=== PATIENT | female | born 1995 | race Caucasian/White ===

== ENCOUNTER → 2020-06-27 | Day surgery (SDC) | payer OTHER ==
[~2020-06-27] MED LIST: Bupivacaine 0.5%/EPINEPHrine 1:200,000 50 ML MDV ONE; Dexamethasone 4 MG/ML 5 ML MDV ONE; HYDROmorphone 0.5 MG/0.5 ML Syringe IVPUSH PRN; Ketorolac 15 MG/ML SDV ONE; Lidocaine 1% 4 ML ONE; Midazolam 1 MG/ML 2 ML SDV ONE; Ondansetron 4 MG/2 ML SDV IVPUSH PRN; Ondansetron 4 MG/2 ML SDV ONE; Propofol 200 MG/20 ML SDV ONE; Rocuronium 50 MG/5 ML Vial ONE; cefOXitin 2 GM in Premix Bag 1 BAG IV ONE; fentaNYL 100 MCG/2 ML SDV IVPUSH PRN; fentaNYL 250 MCG/5 ML SDV ONE; oxyCODONE 5 MG Tab PO PRN
--- NOTE | 2020-06-27 17:30 | PCM.HP.2 ---
H&P History of Present Illness - General Date of Service: 06/27/20 Source of Information: Patient History Limitations: Reports: No Limitations - History of Present Illness Initial Comments - Free Text/Narative: Patient started having RLQ abd pain yesterday. Pain progressed through the day and was severe at night. Associated with anorexia, nausea and vomiting. Vomited twice last night. This AM the pain was better but anorexia persisted. SHe presented to the walk-in clinic where labs were normal but CT revealed 14mm appendix with micaela-inflammatory fluid consistent with acute appendicitis. I was asked to see the patient and asked the patient to meet me in the ED. Onset of Symptoms: Reports: Gradual Duration of Symptoms: Reports: Day(s): (2) Location: Reports: Abdomen Quality: Reports: Ache, Sharp Severity: Moderate Improves with: Reports: Immobilization Worsens with: Reports: Movement Associated Symptoms: Reports: Loss of Appetite, Nausea/Vomiting Abdominal Pain Score (Numeric/FACES): 7 - Related Data Allergies/Adverse Reactions: Allergies Allergy/AdvReac Type Severity Reaction Status Date / Time No Known Allergies Allergy Verified 06/27/20 16:49 Home Medications: Home Meds . [No Known Home Meds] 06/27/20 [History] Past Medical History - Past Health History Medical/Surgical History: Denies Medical/Surgical History Social & Family History - Tobacco Use Smoking Status *Q: Never Smoker - Recreational Drug Use Recreational Drug Use: No H&P Review of Systems - Review of Systems: Review Of Systems: See Below General: Reports: No Symptoms HEENT: Reports: No Symptoms Pulmonary: Reports: No Symptoms Cardiovascular: Reports: No Symptoms Gastrointestinal: Reports: No Symptoms Genitourinary: Reports: No Symptoms Musculoskeletal: Reports: No Symptoms Skin: Reports: No Symptoms Psychiatric: Reports: No Symptoms Neurological: Reports: No Symptoms Hematologic/Lymphatic: Reports: No Symptoms Exam - Exam Exam: See Below - Vital Signs Vital Signs: Last Vital Signs Temp 97.6 F 06/27/20 16:47 Pulse 80 06/27/20 16:47 Resp 19 06/27/20 16:47 BP 135/70 06/27/20 16:47 Pulse Ox 98 06/27/20 16:47 Weight: 89.811 kg - Exam General: Alert, Oriented, Cooperative Lungs: Clear to Auscultation, Normal Respiratory Effort Cardiovascular: Regular Rate, Regular Rhythm, Normal S1, Normal S2 GI/Abdominal Exam: Soft, No Organomegaly, No Distention, No Abnormal Bruit, No Mass, Tender (RLQ and suprapubic) Sepsis Event Note - Evaluation Sepsis Screening Result: No Definite Risk - Focused Exam Vital Signs: Vital Signs Temp Pulse Resp BP Pulse Ox 06/27/20 16:47 97.6 F 80 19 135/70 98 Problem List Initiated/Reviewed/Updated: No Orders Last 24hrs: Active Orders 24 hr Category Date Time Status CORONAVIRUS COVID-19 MARINA [MOLEC] Stat Lab 06/27/20 16:50 Received Assessment/Plan Comment:: Patient has acute appendicitis. I discussed the options for her including antibiotics and surgery including risks and benefits for each. I recommended surgery due to the large appendix. I discussed risks, benefits and alternatives for surgery, risks discussed include but not limited to infection, injury to adjacent structures, bleeding. Patient agreed to proceed with the procedure. Informed consent was obtained. - Mortality Measure Prognosis:: Good
--- NOTE | 2020-06-27 19:03 | PCM.PREANE ---
Preanesthetic Assessment - Procedure Proposed Procedure: Laparoscopic Appendectomy - Anesthesia/Transfusion/Family Hx Anesthesia History: No Prior Anesthesia Family History of Anesthesia Reaction: No - Review of Systems General: Appetite Pulmonary: No Symptoms Cardiovascular: No Symptoms Gastrointestinal: Abdominal Pain Neurological: No Symptoms Other: Reports: None - Physical Assessment NPO Status Date: 06/26/20 NPO Status Time: 20:00 Vital Signs: Last Vital Signs Temp 36.4 C 06/27/20 16:47 Pulse 80 06/27/20 16:47 Resp 19 06/27/20 16:47 BP 135/70 06/27/20 16:47 Pulse Ox 98 06/27/20 16:47 Height: 1.75 m Weight: 89.811 kg ASA Class: 1E Mental Status: Alert & Oriented x3 Airway Class: Mallampati = 1 Dentition: Reports: Normal Dentition (Wear to lower incisors) Thyro-Mental Finger Breadths: 3 Mouth Opening Finger Breadths: 3 ROM/Head Extension: Full Lungs: Clear to Auscultation, Normal Respiratory Effort Cardiovascular: Regular Rate, Regular Rhythm - Lab Values: Laboratory Last Values SARS Virus RNA (PCR) Negative (NEGATIVE) 06/27/20 16:50 Reviewed from [facility]. Within Normal Limits. HCG Negative. - Allergies Allergies/Adverse Reactions: Allergies Allergy/AdvReac Type Severity Reaction Status Date / Time No Known Allergies Allergy Verified 06/27/20 16:49 - Acknowledgements Anesthesia Type Planned: General Anesthesia Pt an Appropriate Candidate for the Planned Anesthesia: Yes Alternatives and Risks of Anesthesia Discussed w Pt/Guardian: Yes Pt/Guardian Understands and Agrees with Anesthesia Plan: Yes PreAnesthesia Questionnaire - Past Health History Medical/Surgical History: Denies Medical/Surgical History - SUBSTANCE USE Smoking Status *Q: Never Smoker Recreational Drug Use History: No - HOME MEDS Home Medications: Home Meds . [No Known Home Meds] 06/27/20 [History] - CURRENT (IN HOUSE) MEDS Current Meds: Current Medications Discontinued Medications Bupivacaine HCl/Epinephrine Bitart (Marcaine 0.5%/Epinephrine 1:200,000) Confirm Administered Dose 50 ml .ROUTE .STK-MED ONE Stop: 06/27/20 18:49 Dexamethasone (Dexamethasone) Confirm Administered Dose 20 mg .ROUTE .STK-MED ONE Stop: 06/27/20 18:34 Fentanyl (Sublimaze) Confirm Administered Dose 250 mcg .ROUTE .STK-MED ONE Stop: 06/27/20 18:34 Cefoxitin Sodium 2 gm/ Premix 50 mls @ 100 mls/hr IV ONETIME ONE Stop: 06/27/20 18:01 Last Admin: 06/27/20 17:41 Dose: 100 mls/hr Documented by: Lidocaine HCl (Xylocaine-Mpf 1%) Confirm Administered Dose 4 mls @ as directed .ROUTE .STK-MED ONE Stop: 06/27/20 18:34 Midazolam HCl (Versed 1 Mg/Ml) Confirm Administered Dose 2 mg .ROUTE .STK-MED ONE Stop: 06/27/20 18:34 Ondansetron HCl (Zofran) Confirm Administered Dose 4 mg .ROUTE .STK-MED ONE Stop: 06/27/20 18:34 Propofol (Diprivan 20 Ml) Confirm Administered Dose 400 mg .ROUTE .STK-MED ONE Stop: 06/27/20 18:34 Rocuronium [place] (Zemuron) Confirm Administered Dose 50 mg .ROUTE .STK-MED ONE Stop: 06/27/20 18:34
--- NOTE | 2020-06-27 19:44 | PCM.POSTAN ---
POST ANESTHESIA ASSESSMENT - MENTAL STATUS Mental Status: Alert, Oriented - VITAL SIGNS Vital Signs: Last Vital Signs Temp 36.4 C 06/27/20 16:47 Pulse 80 06/27/20 16:47 Resp 19 06/27/20 16:47 BP 135/70 06/27/20 16:47 Pulse Ox 98 06/27/20 16:47 1938 98.3 84 17 127/58 17 - RESPIRATORY Respiratory Status: Respiratory Rate WNL, Airway Patent, O2 Saturation Stable, Supplemental Oxygen - CARDIOVASCULAR CV Status: Pulse Rate WNL, Blood Pressure Stable - GASTROINTESTINAL GI Status: No Symptoms - PAIN Pain Score: 0 - POST OP HYDRATION Hydration Status: Adequate & Stable
--- NOTE | 2020-06-27 20:35 | OR ---
DATE OF OPERATION: 06/27/2020 SURGEON: Clifton Cali MD PREOPERATIVE DIAGNOSIS: Acute appendicitis. POSTOPERATIVE DIAGNOSIS: Acute appendicitis. OPERATION PERFORMED: Laparoscopic appendectomy. ESTIMATED BLOOD LOSS: 5 mL. COMPLICATION: None. FINDINGS: Inflamed appendix. INDICATION FOR THE PROCEDURE: The patient is a 24-year-old female who was having right lower quadrant abdominal pain. The day before presentation, the pain progressively got worse. The patient was nauseated and vomiting and anorexic. Today, the patient presented to walk-in clinic, where labs were normal. CT scan revealed acute appendicitis. The patient was sent to the ED. I saw the patient, confirmed the findings on exam, and offered the patient surgical removal of the appendix versus antibiotics. We discussed risks, benefits, and alternatives for each. The patient wanted to proceed with surgical appendectomy, and informed consent was obtained. DESCRIPTION OF PROCEDURE: The patient was taken to the operating room, placed in supine position, and padded appropriately for induction of general endotracheal anesthesia. Preoperative antibiotics were given, and the abdomen was prepped and draped in the usual sterile fashion. Formal time-out was performed prior to the start of the procedure. We began the procedure by injecting 0.25% Marcaine with epinephrine in the infraumbilical position. Incision was made at this site, and then umbilical stalk was elevated and a Veress needle was inserted. The abdomen was insufflated to 15 mmHg. Then, a 12 mm trocar was placed under direct and laparoscopic visualization. The abdomen was inspected. There were no signs of obvious injury due to trocar placement or Veress needle insertion. Then, 2 additional 5 mm trocars were placed, 1 in the suprapubic area, and another 1 in the left lower quadrant. Then, we turned our attention to the right lower quadrant. We found the appendix. The appendix was inflamed in the mid to tip area. The base of the appendix appeared normal as well as the cecum. LigaSure Impact was used to take down the mesoappendix and then the appendix was isolated. A DANNY stapler with a blue load was used to transect the appendix at its base. Then, the appendix was placed in the EndoCatch bag. Then the staple line was inspected. There were no signs of bleeding. The appendix was removed through the infraumbilical incision, and then the infraumbilical incision was closed at the fascial level with 0 Vicryl stitches using Ramy-Karina device. Then, all 3 incision were closed at skin level with 4-0 Monocryl stitches. Dermabond was then applied. The patient will be extubated and go to the recovery area. Instrument, sharps, and sponge were found to be correct x2. Once the patient recovers, will be allowed to try fluids. Once the patient is able to keep down fluids, can be discharged home. ANESTHESIA: MMODAL /[id number] STEFFANY
== END | disposition home or self-care (01) ==
LOC: JD.ED 16:40 → JD.SDS 17:59
PROVIDERS: ATTEND Surgery
DX: K35.33 Acute appendicitis with perforation, localized peritonitis, and gangrene, with abscess (principal); Z01.812 Encounter for preprocedural laboratory examination; Z20.828 Contact with and (suspected) exposure to other viral communicable diseases
CPT/HCPCS: 44970; 87635; A9270; J0694; J1100; J1885; J2001; J2250; J2405; J2704; J2710; J3010; J3490; 00840; U0002